=== PATIENT | female | born 2000 | race Caucasian/White ===

== ENCOUNTER 2024-01-25 11:30 | Outpatient (CLI) | payer OTHER ==
[~2024-01-25 11:30] MED LIST: DICL100G59 TOP; IBUP-1986 PO
== END 2024-01-25 23:59 | disposition home or self-care (01) ==
LOC: MRI02 11:30
PROVIDERS: ATTEND Registered Nurse
DX: M25.561 Pain in right knee (principal)
CPT/HCPCS: 73721